=== PATIENT | female | born 1970 | race Caucasian/White ===

== ENCOUNTER 2018-01-04 11:21 | Emergency (ER) | payer SELFPAY ==
[~2018-01-04] VITALS: Ht 152.4 cm; Wt 55.0 kg
[2018-01-04] MEDS ORDERED: NAPROXEN 250 MG TABLET PO ONE (14:00)
[2018-01-04 14:53] VITALS: BP 125/64
== END 2018-01-04 14:54 | disposition home or self-care (01) ==
LOC: EMS 11:21
DX: R51 Headache (principal); R03.0 Elevated blood-pressure reading, without diagnosis of hypertension
CPT/HCPCS: 99282